=== PATIENT | female | born 1940 | race Caucasian/White ===

== ENCOUNTER 2024-04-29 12:54 | Emergency (ER) | payer MEDICARE, OTHER ==
--- NOTE | 2024-04-29 13:28 | XRAY Report ---
PROCEDURE: Foot 3+V RT INDICATIONS: Trauma TECHNIQUE: 3 views of the foot were acquired. COMPARISON: None. FINDINGS: Bones: Diffuse osteopenia. Oblique shaft fracture of the fifth metatarsal with displacement and mild overriding. 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 No suspicious bony lesions. Soft tissues: No tibiotalar joint effusion. Achilles tendon appears normal. IMPRESSION: Oblique shaft fracture of the fifth metatarsal with displacement and mild overriding. Reviewed by: Charlie Chacko MD on 04/29/2024 1:27 PM PDT Approved by: Charlie Chacko MD on 04/29/2024 1:27 PM PDT Station ID: [id number]
--- NOTE | 2024-04-29 14:12 | ED Physician Documentation ---
PD HPI LOWER EXT INJURY - Stated complaint Stated Complaint: RT FOOT INJ - Chief complaint Chief Complaint: Trauma Ext - History obtained from History obtained from: Patient, Family - History of Present Illness PD HPI LOW EXT INJURY LOCATION: Right, Foot Type of injury: Fall Timing - onset: Last night Timing - details: Abrupt onset Pain level max: 5 Pain level now: 5 Improved by: Rest, Immobilization Worsened by: Moving, Palpating Associated symptoms: Swelling. No: Weakness, Numbness, Tingling Contributing factors: No: Anticoagulated Recently seen: Not recently seen - Additional information Additional information: Patient states she is visiting from [place]. She states that she accidentally twisted her foot last night and now has pain on the lateral aspect of the right foot. Swollen today as well. Worse with walking. PD PAST MEDICAL HISTORY - Past Medical History Past Medical History: No Cardiovascular: None Respiratory: None Neuro: None Endocrine/Autoimmune: None GI: None LANDSCAPE TECHNICIAN: None : None HEENT: None Psych: None Musculoskeletal: None Derm: None - Past Surgical History Past Surgical History: Yes /LANDSCAPE TECHNICIAN: Mastectomy - Allergies Allergies/Adverse Reactions: Allergies Allergy/AdvReac Type Severity Reaction Status Date / Time No Known Drug Allergies Allergy Verified 04/29/24 13:00 - Social History Does the pt smoke?: No Smoking Status: Never smoker Does the pt drink ETOH?: No Does the pt have substance abuse?: No - Immunizations Immunizations are current?: Yes PD ED PE NORMAL - Vitals Vital signs reviewed: Yes - General General: Alert and oriented X 3, No acute distress - Derm Derm: Warm and dry - Extremities Extremities: Other (R foot - Tender to palpation over the right fifth metatarsal . Mild swelling. Mild bruising. Neurovascular intact. Otherwise normal examination of the right foot and ankle.) - Neuro Neuro: Alert and oriented X 3 Results - Vitals Vitals: Vital Signs - 24 hr 04/29/24 04/29/24 13:00 15:39 Temperature 36.8 C 36.5 C Heart Rate 88 86 Respiratory 16 16 Rate Blood Pressure 160/90 H 150/88 H O2 Saturation 98 99 Oxygen O2 Source Room air - Rads (name of study) Right foot x-ray Relevant Findings:: Final report received, See rad report Procedures - Splint (location) - Minor R foot Splint applied by: Physician, Tech Type of splint: Fiberglass, Short leg, Posterior Other: Patient tolerated well, No complications, Neurovascular intact, Other (walker provided) PD Medical Decision Making - ED course Complexity details: reviewed results, considered differential, d/w patient, d/w family ED course: 83-year-old female with a right fifth metatarsal fracture. Shaft fracture. Placed in a short leg posterior splint. Given a walker. Declines pain medication here for home. Recommend she follow-up with orthopedics either here or in [place]. Neurovascular intact after splint application. No other injuries Patient counseled regarding signs and symptoms for which I believe and urgent re-evaluation would be necessary. Patient with good understanding of and agreement to plan and is comfortable going home at this time This document was made in part using voice recognition software. While efforts are made to proofread this document, sound alike and grammatical errors may occur. Departure - Departure Disposition: 01 Home, Self Care Clinical Impression: Metatarsal fracture Qualifiers: Encounter type: initial encounter Metatarsal bone: fifth Fracture type: closed Fracture alignment: displaced Laterality: right Qualified Code(s): S92.351A - Displaced fracture of fifth metatarsal bone, right foot, initial encounter for closed fracture Condition: Good Instructions: ED Fx Foot Follow-Up: [facility] [Provider Group] Comments: You have 5th metatarsal fracture. It is important that you be nonweightbearing on this foot. Is important to follow-up with orthopedics when you return home t o [place]. Please return if you worsen. Your x-ray reading is below. PROCEDURE: Foot 3+V RT INDICATIONS: Trauma TECHNIQUE: 3 views of the foot were acquired. COMPARISON: None. FINDINGS: Bones: Diffuse osteopenia. Oblique shaft fracture of the fifth metatarsal with displacement and mild overriding. 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 No suspicious bony lesions. Soft tissues: No tibiotalar joint effusion. Achilles tendon appears normal. IMPRESSION: Oblique shaft fracture of the fifth metatarsal with displacement and mild overriding. Forms: PCP List Discharge Date/Time: 04/29/24 15:39
[2024-04-29 15:45] VITALS: BP 150/88; O2SAT 99
== END 2024-04-29 15:39 | disposition home or self-care (01) ==
LOC: ED 12:54
DX: S92.351A Displaced fracture of fifth metatarsal bone, right foot, initial encounter for closed fracture (principal); X50.1XXA Overexertion from prolonged static or awkward postures, initial encounter
CPT/HCPCS: 29515; 99283